=== PATIENT | female | born 1950 | race Caucasian/White ===

== ENCOUNTER 2018-03-07 15:48 | Outpatient (CLI) | payer OTHER | END 2018-03-07 16:03 | disposition home or self-care (01) | LOC: LAB 15:48 | DX: E11.65 Type 2 diabetes mellitus with hyperglycemia (principal); D68.8 Other specified coagulation defects; N39.0 Urinary tract infection, site not specified; M05.9 Rheumatoid arthritis with rheumatoid factor, unspecified; R78.2 Finding of cocaine in blood; Z12.11 Encounter for screening for malignant neoplasm of colon; D64.89 Other specified anemias ==

== ENCOUNTER 2018-03-09 14:31 | Outpatient (CLI) | payer OTHER | END 2018-03-09 14:44 | disposition home or self-care (01) | LOC: LAB 14:31 | DX: E11.65 Type 2 diabetes mellitus with hyperglycemia (principal); D68.8 Other specified coagulation defects; N39.0 Urinary tract infection, site not specified; M05.9 Rheumatoid arthritis with rheumatoid factor, unspecified; R78.2 Finding of cocaine in blood; R03.0 Elevated blood-pressure reading, without diagnosis of hypertension; Z12.11 Encounter for screening for malignant neoplasm of colon; D64.89 Other specified anemias ==

== ENCOUNTER 2018-05-01 14:11 | Outpatient (CLI) | payer OTHER | END 2018-05-01 14:28 | disposition home or self-care (01) | LOC: LAB 14:11 | DX: N39.0 Urinary tract infection, site not specified (principal); B99.8 Other infectious disease; M43.12 Spondylolisthesis, cervical region ==

== ENCOUNTER 2018-05-23 10:08 | Outpatient (CLI) | payer OTHER | END 2018-05-23 10:41 | disposition home or self-care (01) | LOC: TOM 10:08 | DX: C71.8 Malignant neoplasm of overlapping sites of brain (principal) ==

== ENCOUNTER 2018-05-29 10:55 | Outpatient (CLI) | payer OTHER | END 2018-05-29 11:10 | disposition home or self-care (01) | LOC: MRI 10:55 | DX: M54.12 Radiculopathy, cervical region (principal) | CPT/HCPCS: 72141 ==

== ENCOUNTER 2018-06-01 08:08 | Outpatient (CLI) | payer OTHER | END 2018-06-01 13:05 | disposition home or self-care (01) | LOC: LAB 08:08 | DX: D64.89 Other specified anemias (principal); N39.0 Urinary tract infection, site not specified; E03.8 Other specified hypothyroidism; E11.65 Type 2 diabetes mellitus with hyperglycemia; Z12.11 Encounter for screening for malignant neoplasm of colon; E78.49 Other hyperlipidemia; M05.9 Rheumatoid arthritis with rheumatoid factor, unspecified; B96.89 Other specified bacterial agents as the cause of diseases classified elsewhere ==

== ENCOUNTER 2018-06-06 12:02 | Outpatient (CLI) | payer OTHER | END 2018-06-06 13:00 | disposition home or self-care (01) | LOC: NUCLEAR 12:02 | DX: I65.23 Occlusion and stenosis of bilateral carotid arteries (principal) ==

== ENCOUNTER 2018-06-07 08:33 | Outpatient (CLI) | payer OTHER | END 2018-06-07 15:00 | disposition home or self-care (01) | LOC: LAB 08:33 | DX: K75.4 Autoimmune hepatitis (principal) ==

== ENCOUNTER 2018-06-08 12:15 | Outpatient (CLI) | payer OTHER | END 2018-06-08 12:17 | disposition home or self-care (01) | LOC: SONOGRAMA 12:15 | DX: N13.2 Hydronephrosis with renal and ureteral calculous obstruction (principal) ==

== ENCOUNTER 2020-03-25 08:17 | Outpatient (CLI) | payer OTHER | END 2020-03-25 08:31 | disposition home or self-care (01) | LOC: TOM 08:17 | PROVIDERS: ATTEND General Practice | DX: K76.0 Fatty (change of) liver, not elsewhere classified (principal); K57.90 Diverticulosis of intestine, part unspecified, without perforation or abscess without bleeding; N85.8 Other specified noninflammatory disorders of uterus; I70.8 Atherosclerosis of other arteries ==

== ENCOUNTER 2020-05-21 12:41 | Outpatient (CLI) | payer OTHER | END 2020-05-21 13:10 | disposition home or self-care (01) | LOC: MAMO-SONO 12:41 | PROVIDERS: ATTEND Specialist | DX: Z12.31 Encounter for screening mammogram for malignant neoplasm of breast (principal); Z87.898 Personal history of other specified conditions; N60.11 Diffuse cystic mastopathy of right breast; N60.12 Diffuse cystic mastopathy of left breast ==

== ENCOUNTER 2020-05-27 09:40 | Outpatient (CLI) | payer OTHER | END 2020-05-27 11:44 | disposition home or self-care (01) | LOC: MRI 09:40 | PROVIDERS: ATTEND Psychiatry & Neurology Neurology | DX: R56.9 Unspecified convulsions (principal) | CPT/HCPCS: 70553; A9575 ==

== ENCOUNTER 2020-05-27 10:27 | Outpatient (CLI) | payer OTHER | END 2020-05-27 10:34 | disposition home or self-care (01) | LOC: LAB 10:27 | PROVIDERS: ATTEND Radiology Diagnostic Radiology | DX: N17.8 Other acute kidney failure (principal) ==

== ENCOUNTER 2020-06-16 09:45 | Outpatient (CLI) | payer OTHER | END 2020-06-16 09:52 | disposition home or self-care (01) | LOC: MAMO-SONO 09:45 | PROVIDERS: ATTEND Student in an Organized Health Care Education/Training Program | DX: R92.8 Other abnormal and inconclusive findings on diagnostic imaging of breast (principal) ==

== ENCOUNTER 2020-08-06 10:33 | Inpatient (IN) | payer OTHER ==
[~2020-08-06] VITALS: Ht 149.9 cm; Wt 77.1 kg
== END 2020-08-07 19:36 | disposition home or self-care (01) | DRG 745 ==
LOC: CIR.AMB 10:33 → OB/GYN 08-07 00:19
PROVIDERS: ADMIT Student in an Organized Health Care Education/Training Program; ATTEND Student in an Organized Health Care Education/Training Program
PROC: 0UDB8ZX Extraction of Endometrium, Via Natural or Artificial Opening Endoscopic, Diagnostic (ICD-10-PCS; principal; 2020-08-07)
PROC: 0UBC8ZX Excision of Cervix, Via Natural or Artificial Opening Endoscopic, Diagnostic (ICD-10-PCS; 2020-08-07)
DX: D06.7 Carcinoma in situ of other parts of cervix (principal); N84.0 Polyp of corpus uteri

== ENCOUNTER 2020-09-02 10:39 | Outpatient (CLI) | payer OTHER | END 2020-09-02 10:44 | disposition home or self-care (01) | LOC: RAD 10:39 | DX: Z01.810 Encounter for preprocedural cardiovascular examination (principal) ==

== ENCOUNTER 2020-10-06 10:29 | Outpatient (CLI) | payer OTHER | END 2020-10-06 10:34 | disposition home or self-care (01) | LOC: RAD 10:29 | PROVIDERS: ATTEND Internal Medicine Cardiovascular Disease | DX: M41.84 Other forms of scoliosis, thoracic region (principal); M43.16 Spondylolisthesis, lumbar region; M46.47 Discitis, unspecified, lumbosacral region; M12.89 Other specific arthropathies, not elsewhere classified, multiple sites ==

== ENCOUNTER 2021-09-29 09:54 | Outpatient (CLI) | payer OTHER | END 2021-09-29 10:13 | disposition home or self-care (01) | LOC: TOM 09:54 | PROVIDERS: ATTEND Internal Medicine Cardiovascular Disease | DX: R51.9 Headache, unspecified (principal) ==

== ENCOUNTER 2021-09-30 08:26 | Outpatient (CLI) | payer OTHER | END 2021-09-30 08:34 | disposition home or self-care (01) | LOC: SONOGRAMA 08:26 | PROVIDERS: ATTEND Internal Medicine Cardiovascular Disease | DX: R10.9 Unspecified abdominal pain (principal) ==

== ENCOUNTER 2021-10-05 10:30 | Outpatient (CLI) | payer OTHER | END 2021-10-05 10:32 | disposition home or self-care (01) | LOC: NUCLEAR 10:30 | PROVIDERS: ATTEND Internal Medicine Cardiovascular Disease | DX: I87.2 Venous insufficiency (chronic) (peripheral) (principal) ==

== ENCOUNTER 2022-02-11 08:36 | Outpatient (CLI) | payer OTHER | END 2022-02-11 14:55 | disposition home or self-care (01) | LOC: TOM 08:36 | PROVIDERS: ATTEND Surgery | DX: K76.0 Fatty (change of) liver, not elsewhere classified (principal); Q44.6 Cystic disease of liver | CPT/HCPCS: 74177; Q9965 ==

== ENCOUNTER → 2022-05-24 | Outpatient (CLI) | payer OTHER | END | disposition home or self-care (01) | LOC: NUCLEAR 07:00 | DX: C54.1 Malignant neoplasm of endometrium (principal) | CPT/HCPCS: 78815; A9552 ==

== ENCOUNTER 2022-06-14 14:17 | Outpatient (CLI) | payer OTHER | END 2022-06-14 14:24 | disposition home or self-care (01) | LOC: SONOGRAMA 14:17 | PROVIDERS: ATTEND Internal Medicine Cardiovascular Disease | DX: E03.9 Hypothyroidism, unspecified (principal) ==

== ENCOUNTER 2023-11-10 07:52 | Outpatient (CLI) | payer OTHER | END 2023-11-10 08:03 | disposition home or self-care (01) | LOC: RAD 07:52 | PROVIDERS: ATTEND Internal Medicine Hematology & Oncology | DX: M25.521 Pain in right elbow (principal); R91.1 Solitary pulmonary nodule ==

== ENCOUNTER 2023-11-24 09:50 | Outpatient (CLI) | payer OTHER | END 2023-11-24 09:56 | disposition home or self-care (01) | LOC: SONOGRAMA 09:50 | DX: M25.521 Pain in right elbow (principal) ==